=== PATIENT | male | born 1950 | race Caucasian/White ===

== ENCOUNTER 2020-08-31 15:41 | Outpatient (RCR) | payer MEDICARE ==
[~2020-08-31 15:41] MED LIST: LIDOCAINE VISC 2% SOLN 15 ML UDC ONE
== END 2020-09-02 ==
LOC: WCC 15:41
PROVIDERS: ATTEND Plastic Surgery
DX: S31.109A Unspecified open wound of abdominal wall, unspecified quadrant without penetration into peritoneal cavity, initial encounter (principal); Y83.8 Other surgical procedures as the cause of abnormal reaction of the patient, or of later complication, without mention of misadventure at the time of the procedure; I10 Essential (primary) hypertension; I45.19 Other right bundle-branch block; I48.19 Other persistent atrial fibrillation; D64.9 Anemia, unspecified; M54.30 Sciatica, unspecified side; E66.01 Morbid (severe) obesity due to excess calories